=== PATIENT | female | born 1990 | race Caucasian/White ===

== ENCOUNTER 2016-10-18 19:32 | Emergency (ER) | payer MEDICAID ==
[2016-10-18 20:13] LABS: BASOPHILS 0.3 % (0-2); EOSINOPHILS 0.6 % (0-7); HEMATOCRIT 41.6 % (36.0-48.0); HEMOGLOBIN 14.4 g/dL (12-16); IMMATURE GRANULOCYTES 0.2 % (0-5); LYMPHOCYTES 12.3 % (15-50); MCH 31.3 pg (26.0-34.0); MCHC 34.6 g/dL (31.0-37.0); MCV 90.4 fL (80.0-100.0); MEAN PLATELET VOLUME 11.3 fL (7.4-10.4); MONOCYTES 7.3 % (2-11); NEUTROPHILS 79.3 % (40-80); PLATELET COUNT 197 10x3/uL (130-400); RDW 12.8 % (11.5-14.5); WBC 9.8 10x3/uL (4.8-10.8)
[2016-10-18 20:17] LABS: HCG URINE NEGATIVE (NEGATIVE)
[2016-10-18 20:22] LABS: APPEARANCE CLEAR (CLEAR); BILIRUBIN NEGATIVE (NEGATIVE); COLOR YELLOW (YELLOW); EPITHELIAL CELLS 0-5 /hpf (0-5); GLUCOSE NEGATIVE (NEGATIVE); KETONE NEGATIVE (NEGATIVE); LEUKOCYTE ESTERASE 1+ (NEGATIVE); NITRITE NEGATIVE (NEGATIVE); PH 6.5 (5.0-6.0); PROTEIN 1+ mg/dL (NEGATIVE); RED CELLS - URINE OCC /hpf (0-5); UROBILINOGEN NORMAL (NORMAL)
[2016-10-18 20:23] LABS: AMORPHOUS SEDIMENT <1+ /lpf (NONE SEEN); BACTERIA MANY /hpf (NONE SEEN); GRANULAR CAST NONE SEEN /lpf (NONE SEEN); HYALINE CAST NONE SEEN /lpf (NONE SEEN); MUCUS NONE SEEN /lpf (NONE SEEN); RED CELL CAST NONE SEEN /lpf (NONE SEEN); SPERMATOZOA NONE SEEN /hpf (NONE SEEN); WAXY CAST NONE SEEN /lpf (NONE SEEN); YEAST NONE SEEN /hpf (NONE SEEN)
[2016-10-18 20:43] LABS: UDS - AMPHET NEGATIVE QUAL (NEGATIVE); UDS - BARB NEGATIVE QUAL (NEGATIVE); UDS - BENZO NEGATIVE QUAL (NEGATIVE); UDS - COCAINE NEGATIVE QUAL (NEGATIVE); UDS - METH NEGATIVE QUAL (NEGATIVE); UDS - OPIATE NEGATIVE QUAL (NEGATIVE); UDS - PCP NEGATIVE QUAL (NEGATIVE); UDS - THC NEGATIVE QUAL (NEGATIVE)
[2016-10-18 21:03] LABS: ALBUMIN 4.1 g/dL (3.4-5.0); ALKALINE PHOSPHATASE 83 U/L (46-116); ALT (SGPT) 29 U/L (10-68); BILIRUBIN - TOTAL 0.44 mg/dL (0.2-1.3); CALC OSMOLALITY 271 mosm/kg (275-300); CALCIUM 9.2 mg/dL (8.5-10.1); CARBON DIOXIDE 21.5 mmol/L (21.0-32.0); CHLORIDE - SERUM 106 mmol/L (98-107); CREATINE KINASE 240 UL (21-215); GLUCOSE 103 mg/dL (74-106); PROTEIN - SERUM 7.5 g/dL (6.4-8.2); SODIUM 137 mmol/L (136-145); UREA NITROGEN 8 mg/dL (7-18); eGFR NON AFRICAN AMERICAN 70 mL/min (90-120)
[2016-10-18 21:08] LABS: TROPONIN-I < 0.017 ng/mL (0.000-0.060)
[2016-10-18 21:09] LABS: POTASSIUM - SERUM 2.8 mmol/L (3.5-5.1)
[2016-10-18 21:10] LABS: CKMB 1.2 U/L (0.0-3.6)
== END 2016-10-18 22:54 | disposition home or self-care (01) ==
LOC: D.ER 19:32
PROVIDERS: Nurse Practitioner Family
DX: R55 Syncope and collapse (principal); R00.2 Palpitations; T50.995A Adverse effect of other drugs, medicaments and biological substances, initial encounter; E87.6 Hypokalemia; R25.2 Cramp and spasm

== ENCOUNTER 2017-12-12 16:11 | Emergency (ER) | payer BC ==
[~2017-12-12] VITALS: Ht 170.2 cm; Wt 113.6 kg
[2017-12-12 16:25] VITALS: Ht 170.2 cm; Wt 113.6 kg
[2017-12-12] MEDS ORDERED: ULTRAM50 MG PO (17:57)
[2017-12-12 18:24] VITALS: BP 120/74
== END 2017-12-12 18:25 | disposition home or self-care (01) ==
LOC: D.ER 16:11
DX: S93.402A Sprain of unspecified ligament of left ankle, initial encounter (principal); W01.0XXA Fall on same level from slipping, tripping and stumbling without subsequent striking against object, initial encounter; Y93.89 Activity, other specified; Y92.019 Unspecified place in single-family (private) house as the place of occurrence of the external cause